=== PATIENT | male | born 1945 | race Caucasian/White ===

== ENCOUNTER 2023-10-31 08:16 | Outpatient (RCR) | payer MEDICARE, BC, SELFPAY ==
[2023-10-31] VITALS (13 sets, daily range): BP systolic 112–135; BP diastolic 62–72
[2023-10-31] MEDS: NSS 250 IV (08:52)
[2023-10-31 08:58] LABS: % Basophils 0.7 % (0-2); % Immature Granulocytes 0.3 % (0-0.5); % Monocytes 11.3 % (1.7-9.3); % Neutrophils 63.7 % (42.2-75.2); Absolute Eosinophils 0.2 10^3/uL (0-0.7); Absolute Lymphocytes 1.3 10^3/uL (1.2-3.4); Absolute Monocytes 0.7 10^3/uL (0.1-0.6); Absolute Neutrophils 3.9 10^3/uL (1.4-6.5); Hematocrit 38.1 % (39.0-52.0); Hemoglobin 12.9 g/dL (13.0-18.0); Mean Corp Hgb Conc. 33.9 g/dL (33.0-37.0); Mean Corpuscular Hgb 32.3 pg (27.0-31.0); Mean Corpuscular Volume 95.3 fL (80.0-94.0); Mean Platelet Volume 9.6 fL (7.4-10.4); Platelet Count 174 10^3/uL (130-400); White Blood Cell Count 6.1 10^3/uL (4.8-10.8)
[2023-10-31] MEDS: BENADRYL 25 MG PO (09:00)
[2023-10-31] MEDS: TYLENOL 650 MG PO (09:00)
[2023-10-31] MEDS: NSS 1000 IV (09:24)
[2023-10-31] MEDS: GAMMAGARD 50 IV (09:25)
[2023-10-31] MEDS: GAMMAGARD 300 IV (10:41)
[2023-11-01 00:13] LABS: IgA 143 mg/dl (70-400); IgG 954 mg/dl (700-1600)
== END 2023-11-01 10:27 | disposition home or self-care (01) ==
LOC: OID 08:16
PROVIDERS: ATTENDING PHYSICIAN Internal Medicine; FAMILY PHYSICIAN Family Medicine
DX: D83.9 Common variable immunodeficiency, unspecified (principal)
CPT/HCPCS: 82784; 85025; 96360; 96361; 96365; 96366; J1569

== ENCOUNTER 2023-11-28 08:28 | Outpatient (RCR) | payer MEDICARE, BC, SELFPAY ==
[2023-11-28] VITALS (13 sets, daily range): BP systolic 103–129; BP diastolic 55–75
[2023-11-28] MEDS: TYLENOL 650 MG PO (08:58)
[2023-11-28] MEDS: BENADRYL 25 MG PO (08:58)
[2023-11-28] MEDS: NSS 250 IV (08:59)
[2023-11-28] MEDS: GAMMAGARD 50 IV (09:35)
[2023-11-28] MEDS: NSS 1000 IV (09:35)
[2023-11-28] MEDS: GAMMAGARD 300 IV (10:51)
== END 2023-11-29 10:31 | disposition home or self-care (01) ==
LOC: OID 08:28
PROVIDERS: ATTENDING PHYSICIAN Internal Medicine; FAMILY PHYSICIAN Family Medicine
DX: D83.9 Common variable immunodeficiency, unspecified (principal)
CPT/HCPCS: 96361; 96365; 96366; J1569

== ENCOUNTER 2023-12-26 08:17 | Outpatient (RCR) | payer MEDICARE, BC, SELFPAY ==
[2023-12-26] VITALS (13 sets, daily range): BP systolic 108–138; BP diastolic 65–86
[2023-12-26] MEDS: NSS 250 IV (08:50)
[2023-12-26] MEDS: TYLENOL 650 MG PO (08:54)
[2023-12-26] MEDS: BENADRYL 25 MG PO (08:54)
[2023-12-26] MEDS: GAMMAGARD 50 IV (09:22)
[2023-12-26] MEDS: NSS 1000 IV (09:22)
[2023-12-26] MEDS: GAMMAGARD 300 IV (10:41)
== END 2023-12-27 10:43 | disposition home or self-care (01) ==
LOC: OID 08:17
PROVIDERS: ATTENDING PHYSICIAN Internal Medicine; FAMILY PHYSICIAN Family Medicine
DX: D83.9 Common variable immunodeficiency, unspecified (principal)
CPT/HCPCS: 96361; 96365; 96366; J1569

== ENCOUNTER 2024-01-23 08:15 | Outpatient (RCR) | payer MEDICARE, BC, SELFPAY ==
[2024-01-23] VITALS (12 sets, daily range): BP systolic 105–129; BP diastolic 51–64
[2024-01-23] MEDS: NSS 250 IV (08:45)
[2024-01-23] MEDS: BENADRYL 25 MG PO (08:52)
[2024-01-23] MEDS: TYLENOL 650 MG PO (08:52)
[2024-01-23] MEDS: GAMMAGARD 50 IV (09:23)
[2024-01-23] MEDS: NSS 1000 IV (09:23)
[2024-01-23 09:50] LABS: % Basophils 0.6 % (0-2); % Eosinophils 3.1 % (0-6); % Immature Granulocytes 0.6 % (0-0.5); % Monocytes 12.1 % (1.7-9.3); % Neutrophils 63.6 % (42.2-75.2); Absolute Eosinophils 0.2 10^3/uL (0-0.7); Absolute Lymphocytes 1.3 10^3/uL (1.2-3.4); Absolute Monocytes 0.8 10^3/uL (0.1-0.6); Absolute Neutrophils 4.1 10^3/uL (1.4-6.5); Hemoglobin 12.1 g/dL (13.0-18.0); Mean Corp Hgb Conc. 33.6 g/dL (33.0-37.0); Mean Corpuscular Hgb 32.4 pg (27.0-31.0); Mean Corpuscular Volume 96.3 fL (80.0-94.0); Mean Platelet Volume 9.4 fL (7.4-10.4); Nucleated Red Blood Cells % 0 % (-); Platelet Count 221 10^3/uL (130-400); Red Blood Cell Count 3.74 10^6/uL (4.70-6.10); Red Cell Dist. Width 12.6 % (11.5-14.5); White Blood Cell Count 6.4 10^3/uL (4.8-10.8)
[2024-01-23] MEDS: GAMMAGARD 300 IV (10:38)
[2024-01-23 23:26] LABS: IgA 152 mg/dl (70-400); IgG 908 mg/dl (700-1600)
== END 2024-01-24 10:12 | disposition home or self-care (01) ==
LOC: OID 08:15
PROVIDERS: ATTENDING PHYSICIAN Internal Medicine; FAMILY PHYSICIAN Family Medicine
DX: D83.9 Common variable immunodeficiency, unspecified (principal)
CPT/HCPCS: 82784; 85025; 96361; 96365; 96366; J1569

== ENCOUNTER 2024-02-20 08:13 | Outpatient (RCR) | payer MEDICARE, BC, SELFPAY ==
[2024-02-20] VITALS (14 sets, daily range): BP systolic 103–127; BP diastolic 45–82
[2024-02-20] MEDS: BENADRYL 25 MG PO (08:49)
[2024-02-20] MEDS: NSS 250 IV (08:49)
[2024-02-20] MEDS: TYLENOL 650 MG PO (08:49)
[2024-02-20] MEDS: GAMMAGARD 50 IV (09:28)
[2024-02-20] MEDS: NSS 1000 IV (09:28)
[2024-02-20] MEDS: GAMMAGARD 300 IV (10:39)
== END 2024-02-21 09:51 | disposition home or self-care (01) ==
LOC: OID 08:13
PROVIDERS: ATTENDING PHYSICIAN Internal Medicine; FAMILY PHYSICIAN Family Medicine
DX: D83.8 Other common variable immunodeficiencies (principal); D83.9 Common variable immunodeficiency, unspecified
CPT/HCPCS: 96361; 96365; 96366; J1569

== ENCOUNTER 2024-03-19 08:11 | Outpatient (RCR) | payer MEDICARE, BC, SELFPAY ==
[2024-03-19] VITALS (13 sets, daily range): BP systolic 99–131; BP diastolic 39–76
[2024-03-19] MEDS: NSS 250 IV (08:51)
[2024-03-19] MEDS: BENADRYL 25 MG PO (08:52)
[2024-03-19] MEDS: TYLENOL 650 MG PO (08:52)
[2024-03-19] MEDS: NSS 1000 IV (09:22)
[2024-03-19] MEDS: GAMMAGARD 50 IV (09:23)
[2024-03-19] MEDS: GAMMAGARD 300 IV (10:36)
== END 2024-03-20 10:20 | disposition home or self-care (01) ==
LOC: OID 08:11
PROVIDERS: ATTENDING PHYSICIAN Internal Medicine; FAMILY PHYSICIAN Family Medicine
DX: D83.8 Other common variable immunodeficiencies (principal)
CPT/HCPCS: 96361; 96365; 96366; J1569

== ENCOUNTER 2024-04-16 08:08 | Outpatient (RCR) | payer MEDICARE, BC, SELFPAY ==
[2024-04-16] VITALS (13 sets, daily range): BP systolic 103–125; BP diastolic 51–68
[2024-04-16] MEDS: NSS 250 IV (08:35)
[2024-04-16 08:38] LABS: % Basophils 0.7 % (0-2); % Eosinophils 4.8 % (0-6); % Immature Granulocytes 0.2 % (0-0.5); % Lymphocytes 21.9 % (20.5-51.1); % Monocytes 11.7 % (1.7-9.3); % Neutrophils 60.7 % (42.2-75.2); Absolute Eosinophils 0.3 10^3/uL (0-0.7); Absolute Lymphocytes 1.3 10^3/uL (1.2-3.4); Absolute Monocytes 0.7 10^3/uL (0.1-0.6); Absolute Neutrophils 3.6 10^3/uL (1.4-6.5); Hematocrit 37.5 % (39.0-52.0); Mean Corp Hgb Conc. 34.7 g/dL (33.0-37.0); Mean Corpuscular Hgb 32.7 pg (27.0-31.0); Mean Corpuscular Volume 94.5 fL (80.0-94.0); Mean Platelet Volume 9.5 fL (7.4-10.4); Platelet Count 197 10^3/uL (130-400); Red Blood Cell Count 3.97 10^6/uL (4.70-6.10); Red Cell Dist. Width 12.8 % (11.5-14.5); White Blood Cell Count 5.9 10^3/uL (4.8-10.8)
[2024-04-16] MEDS: BENADRYL 25 MG PO (08:40)
[2024-04-16] MEDS: TYLENOL 650 MG PO (08:40)
[2024-04-16] MEDS: NSS 1000 IV (09:07)
[2024-04-16] MEDS: GAMMAGARD 50 IV (09:08)
[2024-04-16] MEDS: GAMMAGARD 300 IV (10:16)
[2024-04-17 00:13] LABS: IgA 156 mg/dl (70-400); IgG 1054 mg/dl (700-1600)
== END 2024-04-17 14:04 | disposition home or self-care (01) ==
LOC: OID 08:08
PROVIDERS: ATTENDING PHYSICIAN Internal Medicine; FAMILY PHYSICIAN Family Medicine
DX: D83.9 Common variable immunodeficiency, unspecified (principal)
CPT/HCPCS: 36415; 82784; 85025; 96360; 96361; 96365; 96366; J1569

== ENCOUNTER 2024-05-14 08:16 | Outpatient (RCR) | payer MEDICARE, BC, SELFPAY ==
[2024-05-14] VITALS (13 sets, daily range): BP systolic 93–115; BP diastolic 48–67
[2024-05-14] MEDS: NSS 250 IV (08:40)
[2024-05-14] MEDS: TYLENOL 650 MG PO (08:45)
[2024-05-14] MEDS: BENADRYL 25 MG PO (08:45)
[2024-05-14] MEDS: NSS 1000 IV (09:15)
[2024-05-14] MEDS: GAMMAGARD 50 IV (09:17)
[2024-05-14] MEDS: GAMMAGARD 300 IV (10:32)
== END 2024-05-15 09:29 | disposition home or self-care (01) ==
LOC: OID 08:16
PROVIDERS: ATTENDING PHYSICIAN Internal Medicine; FAMILY PHYSICIAN Family Medicine
DX: D83.8 Other common variable immunodeficiencies (principal)
CPT/HCPCS: 96360; 96361; 96365; 96366; 96376; J1569

== ENCOUNTER 2024-06-11 08:23 | Outpatient (RCR) | payer MEDICARE, BC, SELFPAY ==
[2024-06-11] VITALS (12 sets, daily range): BP systolic 101–130; BP diastolic 34–69
[2024-06-11] MEDS: NSS 250 IV (08:40)
[2024-06-11] MEDS: TYLENOL 650 MG PO (08:48)
[2024-06-11] MEDS: BENADRYL 25 MG PO (08:48)
[2024-06-11] MEDS: NSS 1000 IV (09:10)
[2024-06-11] MEDS: GAMMAGARD 50 IV (09:11)
[2024-06-11] MEDS: GAMMAGARD 300 IV (10:25)
== END 2024-06-11 15:32 | disposition home or self-care (01) ==
LOC: OID 08:23
PROVIDERS: ATTENDING PHYSICIAN Internal Medicine; FAMILY PHYSICIAN Family Medicine
DX: D83.8 Other common variable immunodeficiencies (principal)
CPT/HCPCS: 96361; 96365; 96366; J1569

== ENCOUNTER 2024-08-06 08:17 | Outpatient (RCR) | payer MEDICARE, BC, SELFPAY ==
[2024-07-09] VITALS (13 sets, daily range): BP systolic 101–126; BP diastolic 52–67
[2024-07-09] MEDS: NSS 250 IV (08:50)
[2024-07-09] MEDS: BENADRYL 25 MG PO (09:01)
[2024-07-09] MEDS: TYLENOL 650 MG PO (09:01)
[2024-07-09] MEDS: NSS 1000 IV (09:25)
[2024-07-09] MEDS: GAMMAGARD 50 IV (09:26)
[2024-07-09 09:34] LABS: % Basophils 0.6 % (0-2); % Eosinophils 3.4 % (0-6); % Immature Granulocytes 0.3 % (0-0.5); % Lymphocytes 18.2 % (20.5-51.1); % Monocytes 11.7 % (1.7-9.3); % Neutrophils 65.8 % (42.2-75.2); Absolute Eosinophils 0.2 10^3/uL (0-0.7); Absolute Lymphocytes 1.3 10^3/uL (1.2-3.4); Absolute Monocytes 0.8 10^3/uL (0.1-0.6); Absolute Neutrophils 4.6 10^3/uL (1.4-6.5); Hematocrit 38.8 % (39.0-52.0); Hemoglobin 13.2 g/dL (13.0-18.0); Mean Corpuscular Hgb 30.9 pg (27.0-31.0); Mean Corpuscular Volume 90.9 fL (80.0-94.0); Mean Platelet Volume 9.9 fL (7.4-10.4); Nucleated Red Blood Cells % 0 % (-); Platelet Count 231 10^3/uL (130-400); Red Blood Cell Count 4.27 10^6/uL (4.70-6.10); Red Cell Dist. Width 13.1 % (11.5-14.5)
[2024-07-09] MEDS: GAMMAGARD 300 IV (10:39)
[2024-07-09 23:28] LABS: IgA 162 mg/dl (70-400); IgG 937 mg/dl (700-1600)
[2024-08-06] VITALS (13 sets, daily range): BP systolic 116–134; BP diastolic 54–70
[2024-08-06] MEDS: NSS 250 IV (08:55)
[2024-08-06] MEDS: BENADRYL 25 MG PO (08:56)
[2024-08-06] MEDS: TYLENOL 650 MG PO (08:56)
[2024-08-06] MEDS: GAMMAGARD 50 IV (09:33)
[2024-08-06] MEDS: NSS 1000 IV (09:33)
[2024-08-06] MEDS: GAMMAGARD 300 IV (10:47)
== END 2024-08-07 11:06 | disposition home or self-care (01) ==
LOC: OID 08:17
PROVIDERS: ATTENDING PHYSICIAN Internal Medicine; FAMILY PHYSICIAN Family Medicine
DX: D83.8 Other common variable immunodeficiencies (principal)
CPT/HCPCS: 36415; 82784; 85025; 96361; 96365; 96366; J1569

== ENCOUNTER 2024-09-03 08:15 | Outpatient (RCR) | payer MEDICARE, BC, SELFPAY ==
[2024-09-03] VITALS (13 sets, daily range): BP systolic 111–135; BP diastolic 55–87
[2024-09-03] MEDS: NSS 250 IV (08:40)
[2024-09-03] MEDS: BENADRYL 25 MG PO (08:43)
[2024-09-03] MEDS: TYLENOL 650 MG PO (08:44)
[2024-09-03] MEDS: NSS 1000 IV (09:12)
[2024-09-03] MEDS: GAMMAGARD 50 IV (09:13)
[2024-09-03] MEDS: GAMMAGARD 300 IV (10:28)
== END 2024-09-05 09:35 | disposition home or self-care (01) ==
LOC: OID 08:15
PROVIDERS: ATTENDING PHYSICIAN Internal Medicine; FAMILY PHYSICIAN Family Medicine
DX: D83.8 Other common variable immunodeficiencies (principal)
CPT/HCPCS: 96361; 96365; 96366; J1569

== ENCOUNTER 2024-10-02 08:29 | Outpatient (RCR) | payer MEDICARE, BC, SELFPAY ==
[2024-10-02] VITALS (13 sets, daily range): BP systolic 99–122; BP diastolic 52–63
[2024-10-02] MEDS: NSS 250 IV (08:49)
[2024-10-02] MEDS: TYLENOL 650 MG PO (08:51)
[2024-10-02] MEDS: BENADRYL 25 MG PO (08:52)
[2024-10-02] MEDS: GAMMAGARD 50 IV (09:03)
[2024-10-02] MEDS: NSS 1000 IV (09:10)
[2024-10-02 09:27] LABS: % Basophils 0.6 % (0-2); % Eosinophils 4.5 % (0-6); % Immature Granulocytes 0.5 % (0-0.5); % Lymphocytes 23.1 % (20.5-51.1); % Monocytes 10.1 % (1.7-9.3); % Neutrophils 61.2 % (42.2-75.2); Absolute Eosinophils 0.3 10^3/uL (0-0.7); Absolute Lymphocytes 1.5 10^3/uL (1.2-3.4); Absolute Monocytes 0.7 10^3/uL (0.1-0.6); Absolute Neutrophils 4.1 10^3/uL (1.4-6.5); Hematocrit 38.7 % (39.0-52.0); Hemoglobin 13.1 g/dL (13.0-18.0); Mean Corp Hgb Conc. 33.9 g/dL (33.0-37.0); Mean Corpuscular Hgb 32.2 pg (27.0-31.0); Mean Corpuscular Volume 95.1 fL (80.0-94.0); Mean Platelet Volume 9.5 fL (7.4-10.4); Nucleated Red Blood Cells % 0 % (-); Platelet Count 231 10^3/uL (130-400); Red Blood Cell Count 4.07 10^6/uL (4.70-6.10); Red Cell Dist. Width 12.8 % (11.5-14.5); White Blood Cell Count 6.6 10^3/uL (4.8-10.8)
[2024-10-02 10:02] LABS: IgA 151 mg/dl (70-400); IgG 917 mg/dl (700-1600)
[2024-10-02] MEDS: GAMMAGARD 300 IV (10:21)
== END 2024-10-03 09:37 | disposition home or self-care (01) ==
LOC: OID 08:29
PROVIDERS: ATTENDING PHYSICIAN Internal Medicine; FAMILY PHYSICIAN Family Medicine
DX: D83.8 Other common variable immunodeficiencies (principal)
CPT/HCPCS: 82784; 85025; 96360; 96361; 96365; 96366; J1569

== ENCOUNTER 2024-10-29 08:33 | Outpatient (RCR) | payer MEDICARE, BC, SELFPAY ==
[2024-10-29] VITALS (13 sets, daily range): BP systolic 102–122; BP diastolic 49–64
[2024-10-29] MEDS: NSS 250 IV (08:50)
[2024-10-29] MEDS: TYLENOL 650 MG PO (08:51)
[2024-10-29] MEDS: BENADRYL 25 MG PO (08:52)
[2024-10-29] MEDS: NSS 1000 IV (09:22)
[2024-10-29] MEDS: GAMMAGARD 50 IV (09:23)
[2024-10-29] MEDS: GAMMAGARD 300 IV (10:37)
== END 2024-10-30 10:25 | disposition home or self-care (01) ==
LOC: OID 08:33
PROVIDERS: ATTENDING PHYSICIAN Internal Medicine; FAMILY PHYSICIAN Family Medicine
DX: D83.8 Other common variable immunodeficiencies (principal)
CPT/HCPCS: 96361; 96365; 96366; J1569

== ENCOUNTER 2024-11-26 08:23 | Outpatient (RCR) | payer MEDICARE, BC, SELFPAY ==
[2024-11-26] VITALS (13 sets, daily range): BP systolic 112–133; BP diastolic 54–74
[2024-11-26] MEDS: NSS 250 IV (08:52)
[2024-11-26] MEDS: TYLENOL 650 MG PO (08:54)
[2024-11-26] MEDS: BENADRYL 25 MG PO (08:54)
[2024-11-26] MEDS: NSS 1000 IV (09:25)
[2024-11-26] MEDS: GAMMAGARD 50 IV (09:25)
[2024-11-26] MEDS: GAMMAGARD 300 IV (10:42)
== END 2024-11-27 09:15 | disposition home or self-care (01) ==
LOC: OID 08:23
PROVIDERS: ATTENDING PHYSICIAN Internal Medicine; FAMILY PHYSICIAN Family Medicine
DX: D83.8 Other common variable immunodeficiencies (principal)
CPT/HCPCS: 96361; 96365; 96366; J1569

== ENCOUNTER 2024-12-24 08:14 | Outpatient (RCR) | payer MEDICARE, BC, SELFPAY ==
[2024-12-24] VITALS (13 sets, daily range): BP systolic 101–128; BP diastolic 49–82
[2024-12-24] MEDS: NSS 250 IV (08:45)
[2024-12-24] MEDS: TYLENOL 650 MG PO (08:52)
[2024-12-24] MEDS: BENADRYL 25 MG PO (08:52)
[2024-12-24 09:06] LABS: % Basophils 0.4 % (0-2); % Eosinophils 4.1 % (0-6); % Immature Granulocytes 0.1 % (0-0.5); % Lymphocytes 17.7 % (20.5-51.1); % Monocytes 12.4 % (1.7-9.3); % Neutrophils 65.3 % (42.2-75.2); Absolute Eosinophils 0.4 10^3/uL (0-0.7); Absolute Lymphocytes 1.5 10^3/uL (1.2-3.4); Absolute Monocytes 1.1 10^3/uL (0.1-0.6); Absolute Neutrophils 5.5 10^3/uL (1.4-6.5); Hematocrit 38.8 % (39.0-52.0); Hemoglobin 13.2 g/dL (13.0-18.0); Mean Corpuscular Hgb 31.6 pg (27.0-31.0); Mean Corpuscular Volume 92.8 fL (80.0-94.0); Mean Platelet Volume 9.5 fL (7.4-10.4); Platelet Count 231 10^3/uL (130-400); Red Blood Cell Count 4.18 10^6/uL (4.70-6.10); Red Cell Dist. Width 12.7 % (11.5-14.5); White Blood Cell Count 8.4 10^3/uL (4.8-10.8)
[2024-12-24] MEDS: NSS 1000 IV (09:20)
[2024-12-24] MEDS: GAMMAGARD 50 IV (09:21)
[2024-12-24] MEDS: GAMMAGARD 300 IV (10:37)
[2024-12-24 23:31] LABS: IgA 152 mg/dl (70-400); IgG 933 mg/dl (700-1600)
== END 2024-12-25 10:29 | disposition home or self-care (01) ==
LOC: OID 08:14
PROVIDERS: ATTENDING PHYSICIAN Internal Medicine; FAMILY PHYSICIAN Family Medicine
DX: D83.8 Other common variable immunodeficiencies (principal); J45.40 Moderate persistent asthma, uncomplicated
CPT/HCPCS: 82784; 85025; 96361; 96365; 96366; J1569

== ENCOUNTER 2025-01-28 08:22 | Outpatient (RCR) | payer MEDICARE, BC, SELFPAY ==
[2025-01-28] VITALS (14 sets, daily range): BP systolic 124–143; BP diastolic 59–75
[2025-01-28] MEDS: NSS 250 IV (08:58)
[2025-01-28] MEDS: BENADRYL 25 MG PO (08:59)
[2025-01-28] MEDS: TYLENOL 650 MG PO (08:59)
[2025-01-28] MEDS: NSS 1000 IV (09:30)
[2025-01-28] MEDS: GAMMAGARD 50 IV (09:30)
[2025-01-28] MEDS: GAMMAGARD 300 IV (11:00)
== END 2025-01-29 09:17 | disposition home or self-care (01) ==
LOC: OID 08:22
PROVIDERS: ATTENDING PHYSICIAN Internal Medicine; FAMILY PHYSICIAN Family Medicine
DX: D83.8 Other common variable immunodeficiencies (principal)
CPT/HCPCS: 96361; 96365; 96366; J1569

== ENCOUNTER 2025-02-25 08:24 | Outpatient (RCR) | payer MEDICARE, BC, SELFPAY ==
[2025-02-25] VITALS (14 sets, daily range): BP systolic 105–136; BP diastolic 46–70
[2025-02-25] MEDS: NSS 250 IV (08:51)
[2025-02-25] MEDS: TYLENOL 650 MG PO (08:52)
[2025-02-25] MEDS: BENADRYL 25 MG PO (08:53)
[2025-02-25] MEDS: NSS 1000 IV (09:23)
[2025-02-25] MEDS: GAMMAGARD 50 IV (09:24)
[2025-02-25] MEDS: GAMMAGARD 300 IV (10:47)
== END 2025-02-26 12:49 | disposition home or self-care (01) ==
LOC: OID 08:24
PROVIDERS: ATTENDING PHYSICIAN Internal Medicine; FAMILY PHYSICIAN Family Medicine
DX: D83.8 Other common variable immunodeficiencies (principal)
CPT/HCPCS: 96361; 96365; 96366; J1569

== ENCOUNTER 2025-03-25 08:32 | Outpatient (RCR) | payer MEDICARE, BC, SELFPAY ==
[2025-03-25] VITALS (13 sets, daily range): BP systolic 103–132; BP diastolic 55–73
[2025-03-25] MEDS: NSS 250 IV (08:55)
[2025-03-25 09:00] LABS: % Basophils 0.3 % (0-2); % Eosinophils 2.5 % (0-6); % Immature Granulocytes 0.1 % (0-0.5); % Lymphocytes 17.1 % (20.5-51.1); % Monocytes 10.8 % (1.7-9.3); % Neutrophils 69.2 % (42.2-75.2); Absolute Eosinophils 0.2 10^3/uL (0-0.7); Absolute Lymphocytes 1.2 10^3/uL (1.2-3.4); Absolute Monocytes 0.8 10^3/uL (0.1-0.6); Hematocrit 38.7 % (39.0-52.0); Hemoglobin 13.2 g/dL (13.0-18.0); Mean Corp Hgb Conc. 34.1 g/dL (33.0-37.0); Mean Corpuscular Hgb 32.1 pg (27.0-31.0); Mean Corpuscular Volume 94.2 fL (80.0-94.0); Mean Platelet Volume 9.2 fL (7.4-10.4); Platelet Count 233 10^3/uL (130-400); Red Blood Cell Count 4.11 10^6/uL (4.70-6.10); Red Cell Dist. Width 12.7 % (11.5-14.5); White Blood Cell Count 7.3 10^3/uL (4.8-10.8)
[2025-03-25] MEDS: BENADRYL 25 MG PO (09:02)
[2025-03-25] MEDS: TYLENOL 650 MG PO (09:02)
[2025-03-25] MEDS: GAMMAGARD 50 IV (09:30)
[2025-03-25] MEDS: NSS 1000 IV (09:30)
[2025-03-25] MEDS: GAMMAGARD 300 IV (10:49)
[2025-03-26 05:09] LABS: IgA 159 mg/dl (70-400); IgG 977 mg/dl (700-1600)
== END 2025-03-26 08:22 | disposition home or self-care (01) ==
LOC: OID 08:32
PROVIDERS: ATTENDING PHYSICIAN Internal Medicine; FAMILY PHYSICIAN Family Medicine
DX: D83.8 Other common variable immunodeficiencies (principal)
CPT/HCPCS: 82784; 85025; 96361; 96365; 96366; J1569

== ENCOUNTER 2025-04-24 08:10 | Outpatient (RCR) | payer MEDICARE, BC, SELFPAY ==
[2025-04-24] VITALS (13 sets, daily range): BP systolic 107–141; BP diastolic 52–68
[2025-04-24] MEDS: BENADRYL 25 MG PO (08:51)
[2025-04-24] MEDS: TYLENOL 650 MG PO (08:51)
[2025-04-24] MEDS: NSS 250 IV (08:52)
[2025-04-24] MEDS: GAMMAGARD 50 IV (09:21)
[2025-04-24] MEDS: NSS 1000 IV (09:22)
[2025-04-24] MEDS: GAMMAGARD 300 IV (10:42)
== END 2025-04-27 10:45 | disposition home or self-care (01) ==
LOC: OID 08:10
PROVIDERS: ATTENDING PHYSICIAN Internal Medicine; FAMILY PHYSICIAN Family Medicine
DX: D83.8 Other common variable immunodeficiencies (principal)
CPT/HCPCS: 96361; 96365; 96366; J1569

== ENCOUNTER 2025-05-20 08:14 | Outpatient (RCR) | payer MEDICARE, BC, SELFPAY ==
[2025-05-20] VITALS (13 sets, daily range): BP systolic 105–131; BP diastolic 56–64
[2025-05-20] MEDS: NSS 250 IV (08:40)
[2025-05-20] MEDS: BENADRYL 25 MG PO (08:46)
[2025-05-20] MEDS: TYLENOL 650 MG PO (08:46)
[2025-05-20] MEDS: NSS 1000 IV (09:13)
[2025-05-20] MEDS: GAMMAGARD 50 IV (09:13)
[2025-05-20] MEDS: GAMMAGARD 300 IV (10:30)
== END 2025-05-21 08:11 | disposition home or self-care (01) ==
LOC: OID 08:14
PROVIDERS: ATTENDING PHYSICIAN Internal Medicine; FAMILY PHYSICIAN Family Medicine
DX: D83.8 Other common variable immunodeficiencies (principal)
CPT/HCPCS: 96361; 96365; 96366; J1569

== ENCOUNTER 2025-06-17 08:32 | Outpatient (RCR) | payer MEDICARE, BC, SELFPAY ==
[2025-06-17] VITALS (11 sets, daily range): BP systolic 105–127; BP diastolic 51–63
[2025-06-17] MEDS: NSS 250 IV (08:58)
[2025-06-17 09:01] LABS: Hematocrit 38.9 % (39.0-52.0); Hemoglobin 13.2 g/dL (13.0-18.0); Mean Corp Hgb Conc. 33.9 g/dL (33.0-37.0); Mean Corpuscular Volume 94.9 fL (80.0-94.0); Platelet Count 202 10^3/uL (130-400); Red Cell Dist. Width 12.8 % (11.5-14.5)
[2025-06-17] MEDS: TYLENOL 650 MG PO (09:06)
[2025-06-17] MEDS: BENADRYL 25 MG PO (09:06)
[2025-06-17] MEDS: NSS 1000 IV (09:38)
[2025-06-17] MEDS: GAMMAGARD 50 IV (09:39)
[2025-06-17] MEDS: GAMMAGARD 300 IV (10:55)
== END 2025-06-18 09:39 | disposition home or self-care (01) ==
LOC: OID 08:32
PROVIDERS: ATTENDING PHYSICIAN Internal Medicine; FAMILY PHYSICIAN Family Medicine
DX: D83.8 Other common variable immunodeficiencies (principal)
CPT/HCPCS: 36415; 82784; 85025; 96361; 96365; 96366; J1569

== ENCOUNTER 2025-07-15 08:27 | Outpatient (RCR) | payer MEDICARE, BC, SELFPAY ==
[2025-07-15] VITALS (13 sets, daily range): BP systolic 114–127; BP diastolic 58–69
[2025-07-15] MEDS: NSS 250 IV (08:45)
[2025-07-15] MEDS: TYLENOL 650 MG PO (08:51)
[2025-07-15] MEDS: BENADRYL 25 MG PO (08:51)
[2025-07-15] MEDS: NSS 1000 IV (09:17)
[2025-07-15] MEDS: GAMMAGARD 50 IV (09:18)
[2025-07-15] MEDS: GAMMAGARD 300 IV (10:26)
== END 2025-07-16 10:37 | disposition home or self-care (01) ==
LOC: OID 08:27
PROVIDERS: ATTENDING PHYSICIAN Internal Medicine; FAMILY PHYSICIAN Family Medicine
DX: D83.8 Other common variable immunodeficiencies (principal)
CPT/HCPCS: 96361; 96365; 96366; J1569

== ENCOUNTER 2025-08-12 08:16 | Outpatient (RCR) | payer MEDICARE, BC, SELFPAY ==
[2025-08-12] VITALS (12 sets, daily range): BP systolic 116–133; BP diastolic 57–73
[2025-08-12] MEDS: NSS 250 IV (08:55)
[2025-08-12] MEDS: TYLENOL 650 MG PO (09:01)
[2025-08-12] MEDS: BENADRYL 25 MG PO (09:01)
[2025-08-12] MEDS: GAMMAGARD 50 IV (09:30)
[2025-08-12] MEDS: NSS 1000 IV (09:31)
[2025-08-12] MEDS: GAMMAGARD 300 IV (10:45)
== END 2025-08-13 09:25 | disposition home or self-care (01) ==
LOC: OID 08:16
PROVIDERS: ATTENDING PHYSICIAN Internal Medicine; FAMILY PHYSICIAN Family Medicine
DX: D83.8 Other common variable immunodeficiencies (principal)
CPT/HCPCS: 96361; 96365; 96366; J1569

== ENCOUNTER 2025-10-07 08:02 | Outpatient (RCR) | payer MEDICARE, BC, SELFPAY ==
[2025-09-09] VITALS (13 sets, daily range): BP systolic 92–140; BP diastolic 62–77
[2025-09-09] MEDS: NSS 250 IV (09:03)
[2025-09-09] MEDS: BENADRYL 25 MG PO (09:12)
[2025-09-09] MEDS: TYLENOL 650 MG PO (09:12)
[2025-09-09 09:14] LABS: Hematocrit 38.8 % (39.0-52.0); Hemoglobin 12.9 g/dL (13.0-18.0); Mean Corp Hgb Conc. 33.2 g/dL (33.0-37.0); Mean Corpuscular Volume 99.0 fL (80.0-94.0); Platelet Count 188 10^3/uL (130-400); Red Cell Dist. Width 12.2 % (11.5-14.5)
[2025-09-09] MEDS: GAMMAGARD 50 IV (09:35)
[2025-09-09] MEDS: NSS 1000 IV (09:35)
[2025-09-09] MEDS: GAMMAGARD 300 IV (10:54)
[2025-10-07] VITALS (14 sets, daily range): BP systolic 95–138; BP diastolic 54–79
[2025-10-07] MEDS: NSS 250 IV (08:25)
[2025-10-07] MEDS: BENADRYL 25 MG PO (08:29)
[2025-10-07] MEDS: TYLENOL 650 MG PO (08:29)
[2025-10-07] MEDS: NSS 1000 IV (08:56)
[2025-10-07] MEDS: GAMMAGARD 50 IV (09:00)
[2025-10-07] MEDS: GAMMAGARD 300 IV (10:23)
== END 2025-10-07 23:59 | disposition home or self-care (01) ==
LOC: OID 08:02
PROVIDERS: ATTENDING PHYSICIAN Internal Medicine; FAMILY PHYSICIAN Family Medicine
DX: D83.8 Other common variable immunodeficiencies (principal)
CPT/HCPCS: 36415; 82784; 85025; 96361; 96365; 96366; J1569